=== PATIENT | male | born 1970 ===

== ENCOUNTER 2019-09-13 08:00 | Emergency (ER) | payer BC, OTHER ==
[2019-09-13 08:45] VITALS: BP 152/68
--- NOTE | 2019-09-13 08:47 | UC ---
FLU HPI - HPI Summary HPI Summary: Patient is a 49yo male presenting with fever, body aches, chills x3 days. Patient states fever was 101.7 at symptom onset. States symptoms improve with ibuprofen. States chills and body aches come and go and "are very painful." Denies nasal congestion and nasal discharge. Denies sore throat. Denies cough, SOB, wheezing. Denies chest pain and discomfort. Denies n/v/d. Normal appetite. Notes fatigue. Denies known ill contacts but has heard rumors at work that someone may have been exposed to covid 19. Denies significant PMH. Current smoker of 1ppd for 30 years. - History of Current Complaint Chief Complaint: UCGeneralIllness Stated Complaint: FEVER BODYACHES CHILLS Hx Obtained From: Patient Pain Intensity: 3 Pain Scale Used: 0-10 Numeric - Allergy/Home Medications Allergies/Adverse Reactions: Allergies Allergy/AdvReac Type Severity Reaction Status Date / Time No Known Allergies Allergy Verified 09/13/19 08:18 Home Medications: Home Medications Ibuprofen TAB* [Advil TAB*] 400 mg PO Q4H PRN 09/13/19 [History Confirmed ] PMH/Surg Hx/FS Hx/Imm Hx - Surgical History Surgical History: None - Family History Known Family History: Positive: Non-Contributory - Social History Alcohol Use: Occasionally Substance Use Type: None Smoking Status (MU): Heavy Every Day Tobacco Smoker Type: Cigarettes Amount Used/How Often: 1 ppd Review of Systems All Other Systems Reviewed And Are Negative: Yes Constitutional: Positive: Fever, Chills, Fatigue ENT: Positive: Negative Respiratory: Positive: Negative Cardiovascular: Positive: Negative Gastrointestinal: Positive: Negative Musculoskeletal: Positive: Myalgia Neurological/Mental Status: Positive: Negative Physical Exam - Summary Physical Exam Summary: Vital Signs Reviewed: Yes A+Ox3, no distress, well-appearing Eyes: Conjunctiva Clear ENT: Hearing grossly normal, b/l cerumen impaction, moist, uvula midline, no exudate, no erythema, no tonsillar swelling Neck: Positive: Supple, no lymphadenopathy Respiratory: Positive: No respiratory distress, No accessory muscle use + CTA throughout no w/r Cardiovascular: tachycardia, regular rhythm, nl s1, s2 no m/r Musculoskeletal Exam: JUSTICE x 4 without difficulty Neurological: Positive: Alert Psychological: Positive: age appropriate behavior Skin: Positive: no rash, no ecchymosis Vital Signs: Vital Signs (72 hours) 09/13/19 08:44 Temperature 102.7 F Pulse Rate 124 Respiratory 16 Rate Blood Pressure 152/68 (mmHg) O2 Sat by Pulse 98 Oximetry Lab Results 09/13/19 Range/Units 08:43 Influenza A (Rapid) Negative (Negative) Influenza B (Rapid) Negative (Negative) Flu Course/Dx - Course Course Of Treatment: Flu test was negative. I discussed negative flu result with the patient and informed him that he would receive the covid19 results within the next 3-5 days. I discussed self quarantining until results have been received and he is advised otherwise. Instructed to continue with otc antipyretics and increase fluids. Instructed to go to the ED if he experiences shortness of breath/ difficulty breathing. Patient voiced understanding and agreed with treatment plan. All questions answered to the best of my abilities. - Differential Dx/Diagnosis Differential Diagnosis/HQI/PQRI: Influenza, Other - viral illness Provider Diagnosis: Febrile illness Discharge ED - Sign-Out/Discharge Documenting (check all that apply): Patient Departure All imaging exams completed and their final reports reviewed: No Studies - Discharge Plan Condition: Stable Disposition: HOME Patient Education Materials: Viral Syndrome (ED) Forms: COVID-19 Tested & Isolation Referrals: No Primary Care Phys,NOPCP [Primary Care Provider] - Additional Instructions: As discussed, you tested negative for influenza today. You also received testing for covid-19 today. You will be notified of the results within 3-5 days. You need to self-quarantine for the next 14 days unless otherwise advised by a healthcare provider. This means staying home and no contact with anyone who lives with you. You should not share your bedroom or bathroom. Food should be left outside your door for you to take once the other person has walked away. You may continue with tylenol and/or ibuprofen as directed for fever and pain relief. Increase your fluid intake. Go to the nearest emergency room if you experience new or worsening symptoms, including shortness of breath and difficulty breathing. - Billing Disposition and Condition Condition: STABLE Disposition: Home - Attestation Statements Provider Attestation: I was available for consult. This patient was seen by the [facility]. The patient was not presented to , seen by or examined by ia -Serenity Sanford MD
[2019-09-13 08:55] LABS: Influenza A Molecular Negative (Negative); Influenza B Molecular Negative (Negative)
== END 2019-09-13 09:11 | disposition home or self-care (01) ==
LOC: UCCORT 08:00
DX: R50.9 Fever, unspecified (principal); M79.10 Myalgia, unspecified site; R53.83 Other fatigue; Z20.828 Contact with and (suspected) exposure to other viral communicable diseases; F17.210 Nicotine dependence, cigarettes, uncomplicated
CPT/HCPCS: 87635; 99201; G0463